=== PATIENT | female | born 1955 | race Caucasian/White ===

== ENCOUNTER 2024-07-07 13:53 | Emergency (ER) | payer MEDICARE, MEDICAID ==
[~2024-07-07] VITALS: Ht 144.8 cm; Wt 77.0 kg
[2024-07-07 14:21] VITALS: O2SAT 98
[2024-07-07] MEDS: IBUPROFEN 400MG TABLET PO ONE (16:00)
[2024-07-07 17:33] VITALS: BP 148/70; PULSE 80; RESP 12; TEMP 37; O2SAT 99
== END 2024-07-07 18:14 | disposition home or self-care (01) ==
LOC: ER 13:53
DX: M54.9 Dorsalgia, unspecified (principal); E78.5 Hyperlipidemia, unspecified; I10 Essential (primary) hypertension
CPT/HCPCS: 99281